=== PATIENT | female | born 1945 | race Caucasian/White ===

== ENCOUNTER 2022-05-21 10:33 | Emergency (ER) | payer OTHER ==
[~2022-05-21] VITALS: Ht 157.5 cm; Wt 72.6 kg
[~2022-05-21 10:33] MED LIST: ADALAT CC30 MG; DIOVAN40 MG
== END 2022-05-21 13:35 ==
LOC: ER 10:33
DX: B34.9 Viral infection, unspecified (principal); D64.9 Anemia, unspecified; E11.9 Type 2 diabetes mellitus without complications; I10 Essential (primary) hypertension